=== PATIENT | female | born 1960 | race Caucasian/White ===

== ENCOUNTER 2020-12-18 17:53 | Emergency (ER) | payer OTHER, SELFPAY ==
--- NOTE | ~2020-12-18 | XR_ITS ---
EXAMINATION: XR knee LT min 4V EXAM DATE: 12/18/2020 18:20 INDICATION: Lt Knee Injury X 1 Wk Ago, Lt Anterior Knee Pain. TECHNIQUE: Left knee frontal, crosstable lateral, orthogonal oblique projections for interpretation. Comparison is made to prior examination from 09/08/2016. FINDINGS: No evidence osteochondral defect or joint body in the left knee joint. There is soft tiss ue swelling anterior to the patella, patellar tendon. There are no acute fractures identified. No alfred nt effusion. Joint spaces are maintained. IMPRESSION: Anterior soft tissue swelling. Reviewed, dictated and finalized at location A.
[2020-12-18 18:03] VITALS: BP 158/98; PULSE 91; RESP 14; TEMP 36.9; O2SAT 99
--- NOTE | 2020-12-18 20:46 | ED.LOWEXIN ---
HPI - Extremity Injury (Lower) General Chief Complaint: Extremity Injury, Lower Stated Complaint: left knee pain Time Seen by Provider: 12/18/20 20:19 Source: patient Mode of arrival: ambulatory Limitations: no limitations History of Present Illness HPI Narrative: This is a 60-year-old female that presents to the emergency department for left knee pain after an injury a week ago. Reports she tripped and fell forward and landed on the knee. Reports since she has had swelling and pain in the knee. Worse with movement and weightbearing. Relieved with rest. Denies hitting her head, loss of consciousness, other injuries, erythema, warmth, decreased range of motion or numbness. Related Data Home Medications Medication Instructions Recorded Confirmed fluoxetine mg 12/18/20 losartan 12/18/20 omeprazole 12/18/20 Allergies Allergy/AdvReac Type Severity Reaction Status Date / Time No Known Allergies Allergy Unknown Verified 12/18/20 20:20 No Known Allergies Allergy Unknown Uncoded 12/18/20 20:20 Review of Systems Review of Systems: CONSTITUTIONAL: Denies fever SKIN: Denies rash MUSCULOSKELETAL: Reports joint pain, and myalgia. All systems reviewed & are unremarkable except as noted in HPI and below PMFSH Past Medical History Medical History (Updated 12/18/20 @ 20:48 by Cristiana Madrigal PA-C) History of gastroesophageal reflux (GERD) History of hypertension Social History Social History (Updated 12/18/20 @ 20:47 by Cristiana Madrigal PA-C) Substance use: never Exam Narrative: GENERAL: Well-appearing, well-nourished, and in no acute distress. HEAD: Normocephalic, atraumatic. EYES: EOMI. EXTREMITIES: Normal range of motion. Mild soft tissue swelling anterior to the left patella. No erythema or warmth of the knee. Normal DP pulses SKIN: Warm, dry, no rash. NEURO: No focal deficits. Alert and oriented x3. PSYCH: Normal mood and affect Course Vital Signs Vital signs: Vital Signs Temperature 98.5 F 12/18/20 18:03 Pulse Rate 91 12/18/20 18:03 Respiratory Rate 14 12/18/20 18:03 Blood Pressure 158/98 H 12/18/20 18:03 Pulse Oximetry 99 12/18/20 18:03 Temperature 98.5 F 12/18/20 18:03 Pulse Rate 91 12/18/20 18:03 Respiratory Rate 14 12/18/20 18:03 Blood Pressure 158/98 H 12/18/20 18:03 Pulse Oximetry 99 12/18/20 18:03 MDM - Extremity Injury (Lower) MDM Narrative Medical decision making narrative: Patient presents to the emergency department for left knee injury sustained a week ago. She is afebrile and nontoxic-appearing. She is neurovascularly intact. Left knee x-rays without acute osseous abnormalities or evidence of joint effusion. Does show some anterior soft tissue swelling. Patient placed in an Jb wrap and given crutches. Will be given orthopedics for follow-up. She was given warnings to return to the ER Imaging Data Radiologist's impression: ITS Impressions Knee X-Ray 12/18/20 18:25 IMPRESSION: Anterior soft tissue swelling. Critical Care Time Critical Care Time Critical Care Time: No Discharge Plan Discharge Clinical Impression: Contusion of knee Qualifiers: Encounter type: initial encounter Laterality: left Qualified Code(s): S80.02XA - Contusion of left knee, initial encounter Patient Disposition: Home, Self-Care Condition: Stable Instructions: Contusion in Adults (ED) Additional Instructions: Return to the emergency department if you experience fever, redness and swelling of your knee, numbness, or any other symptoms that are concerning to you Rest. Elevate. Ice to the area. Tylenol or ibuprofen as needed for pain Follow-up with orthopedics if symptoms persist Prescriptions: No Action losartan 50 mg tablet RF: 0 omeprazole 20 mg capsule,delayed release(DR/EC) RF: 0 fluoxetine 20 mg capsule RF: 0 Follow-up/Referrals: PHYSICIAN NOT ON STAFF,NONSTAFF [Primary Ca
[2020-12-18 21:24] VITALS: BP 149/87; PULSE 88; RESP 17; O2SAT 98
== END 2020-12-18 21:00 | disposition home or self-care (01) ==
PROVIDERS: Emergency Provider Emergency Medicine
DX: S80.02XA Contusion of left knee, initial encounter (principal); K21.9 Gastro-esophageal reflux disease without esophagitis; I10 Essential (primary) hypertension; W01.0XXA Fall on same level from slipping, tripping and stumbling without subsequent striking against object, initial encounter
CPT/HCPCS: 73564; 99283

== ENCOUNTER 2021-02-11 20:23 | Emergency (ER) | payer OTHER, SELFPAY ==
[2021-02-11 20:37] VITALS: BP 172/92; PULSE 94; RESP 18; TEMP 36.6; O2SAT 98
--- NOTE | 2021-02-11 21:35 | ED.GENADULT ---
HPI - General Adult General Chief complaint: Skin/Abscess/Foreign Body Stated complaint: insect bite Time Seen by Provider: 02/11/21 21:18 History of Present Illness HPI narrative: Patient is a 60-year-old female presents the emergency department with chief complaint of redness and swelling in the left forearm. Patient states that on the dorsal aspect of her left forearm there is a tender swollen area patient states it was reddened reports there is been no drainage from it reports she may have been bitten by an insect. Patient denies diabetes denies fever denies streaking. Related Data Home Medications Medication Instructions Recorded Confirmed fluoxetine mg 12/18/20 losartan 12/18/20 omeprazole 12/18/20 Allergies Allergy/AdvReac Type Severity Reaction Status Date / Time No Known Allergies Allergy Unknown Verified 02/11/21 20:56 No Known Allergies Allergy Unknown Uncoded 12/18/20 20:20 Review of Systems Review of Systems: A 10 system review of systems was completed on the patient and is negative except for what is stated in the HPI. Nursing and ancillary documentation was reviewed. [facility] Past Medical History Medical History History of gastroesophageal reflux (GERD) History of hypertension Social History Social History Substance use: never Exam Narrative: GENERAL: Well-appearing, well-nourished, and in no acute distress. HEAD: Normocephalic, atraumatic. EYES: PERRLA and EOMI. ENT: Nares clear, no rhinorrhea or epistaxis. Mucous membranes moist. NECK: Supple. CHEST: Clear to auscultation. No respiratory distress. HEART: Regular rate and rhythm. No murmur heard. Normal peripheral pulses. ABDOMEN: Soft, nontender, nondistended, normal active bowel sounds. EXTREMITIES: Normal range of motion. No edema. There is an area of erythema approximately dime sized on the left forearm on the dorsal aspect. There is a small area of fluctuance. SKIN: Warm, dry, no rash. NEURO: No focal deficits. Alert and oriented x3. PSYCH: Normal mood and affect. Course Vital Signs Vital signs: Vital Signs Temperature 36.6 C 02/11/21 20:37 Pulse Rate 94 02/11/21 20:37 Respiratory Rate 18 11/30/21 20:37 Blood Pressure 172/92 H 02/11/21 20:37 Pulse Oximetry 98 02/11/21 20:37 Temperature 36.6 C 02/11/21 20:37 Pulse Rate 94 02/11/21 20:37 Respiratory Rate 18 02/11/21 20:37 Blood Pressure 172/92 H 02/11/21 20:37 Pulse Oximetry 98 02/11/21 20:37 Procedures Abscess I/D upper extremity: Date of Incision: 02/11/21 Time of Incision: 22:23 Side (if applicable): left Local Anesthetic: lidocaine 1% Amount of anesthesia used (mL): 2 Technique: incised with #11 blade Amount of fluid expressed (mL): 0.5 Packing used?: none I&D Results: Pus (small drop) and Blood Medical Decision Making Vital Signs Vital Signs: Vital Signs Temperature 36.6 C 02/11/21 20:37 Pulse Rate 94 02/11/21 20:37 Respiratory Rate 18 02/11/21 20:37 Blood Pressure 172/92 H 02/11/21 20:37 Pulse Oximetry 98 02/11/21 20:37 Temperature 36.6 C 02/11/21 20:37 Pulse Rate 94 02/11/21 20:37 Respiratory Rate 18 02/11/21 20:37 Blood Pressure 172/92 H 02/11/21 20:37 Pulse Oximetry 98 02/11/21 20:37 Discharge Plan Discharge Clinical Impression: Abscess of forearm, left Patient Disposition: Home, Self-Care Condition: Stable Instructions: Antibiotic Form, Abscess (ED) Prescriptions: New sulfamethoxazole-trimethoprim [Bactrim DS] 800-160 mg tablet 1 tablet PO Q12H 7 Days Qty: 14 RF: 0 No Action losartan 50 mg tablet RF: 0 omeprazole 20 mg capsule,delayed release(DR/EC) RF: 0 fluoxetine 20 mg capsule RF: 0 Follow-up/Referrals: Singh,ERNESTO Rebolledo [
[2021-02-11 22:32] VITALS: BP 157/88; PULSE 80; RESP 18; O2SAT 96
[2021-02-11] MEDS: LIDOCAINE HCL 1% LOCAL INJ 20 ML VIAL (22:32)
== END 2021-02-11 22:36 | disposition home or self-care (01) ==
PROVIDERS: Emergency Provider Emergency Medicine; PCP Physician Assistant
DX: L02.414 Cutaneous abscess of left upper limb (principal); I10 Essential (primary) hypertension; K21.9 Gastro-esophageal reflux disease without esophagitis
CPT/HCPCS: 10060; 99283; A9270

== ENCOUNTER 2021-06-21 11:11 | Emergency (ER) | payer OTHER, SELFPAY ==
--- NOTE | ~2021-06-21 | XR_ITS ---
EXAMINATION: XR knee LT min 4V EXAM DATE: 06/21/2021 12:14 INDICATION: No known recent injury provided at this time. Pain of the left knee. TECHNIQUE: Left knee lateral, frontal AP, frontal PA tunnel, sunrise projections. Comparison is made to prior examination from 12/18/2020. FINDINGS: No evidence osteochondral defect or joint body in the left knee joint. Again there is mil d swelling anterior to the patella, patellar tendon. Small suprapatellar enthesopathy. There are no a cute fractures or dislocations identified. There is no subcutaneous gas. No joint effusion. There is mild to moderate patellar lateral subluxation and tilt. Mild patellofemoral compartment primary oste oarthritis. There are no radiopaque foreign bodies. IMPRESSION: 1. Left knee exam without acute osseous findings. 2. Mild to moderate lateral patellar tilt and subluxation. 3. Mild patellofemoral osteoarthritis. 4. Mild anterior soft tissue swelling. Reviewed, dictated and finalized at location A.
[2021-06-21 11:31] VITALS: BP 161/89; PULSE 89; RESP 16; TEMP 36.6; O2SAT 95
--- NOTE | 2021-06-21 12:00 | ED.LOWEXIN ---
HPI - Extremity Injury (Lower) General Chief Complaint: Extremity Injury, Lower <Cecy Lucio PA-C - Last Filed: 06/21/21 17:02> Stated Complaint: left knee pain <Cecy Lucio PA-C - Last Filed: 06/21/21 17:02> Time Seen by Provider: 06/21/21 11:18 <Cecy Lucio PA-C - Last Filed: 06/21/21 17:02> Source: patient <JO ANN Hines Last Filed: 06/21/21 17:02> Mode of arrival: ambulatory <JO ANN Hines Last Filed: 06/21/21 17:02> Limitations: no limitations <JO ANN Hines Last Filed: 06/21/21 17:02> History of Present Illness HPI Narrative: Patient is a 60-year-old female who presents the ED with report of left knee pain. Patient reports she fell 3 months ago and landed directly down on her left knee. Per patient's records, she was seen in the ED for left knee pain in December 2020. Had negative x-rays at that time and was given orthopedic follow-up. Patient has not followed up with Ortho. She states she has seen her primary care doctor for this and had again repeat x-rays which were negative. Patient reports the pain has become more bothersome in the past 2 weeks. No new fall or injury. She is able to ambulate and only reports having occasional pain with this. She has been taking ibuprofen at home without much relief. No fever, chills, swelling, redness, warmth. No numbness/tingling, weakness. <JO ANN Hines Last Filed: 06/21/21 17:02> Related Data Home Medications: Home Medications Medication Instructions Recorded Confirmed atorvastatin 40 mg PO DAILY 06/21/21 cetirizine [Zyrtec] 10 mg PO DAILY 06/21/21 fluoxetine [Prozac] 20 mg PO DAILY 06/21/21 gabapentin 600 mg PO TID 06/21/21 losartan 50 mg PO DAILY 06/21/21 omeprazole 40 mg PO DAILY 06/21/21 <JO ANN Hines Last Filed: 06/21/21 17:02> Allergies/Adverse Reactions: Allergies Allergy/AdvReac Type Severity Reaction Status Date / Time No Known Allergies Allergy Unknown Verified 06/21/21 11:34 <Cecy Lucio PA-C - Last Filed: 06/21/21 17:02> Review of Systems Review of Systems: CONSTITUTIONAL: Denies fever, chills. SKIN: Denies swelling, redness, warmth to L knee. MUSCULOSKELETAL: Reports L knee pain. Denies back pain, difficulty ambulating. NEUROLOGIC: Denies numbness, or weakness. <Cecy Lucio PA-C - Last Filed: 06/21/21 17:02> All systems reviewed & are unremarkable except as noted in HPI and below <Cecy Lucio PA-C - Last Filed: 06/21/21 17:02> PMFSH Past Medical History Medical History: Medical History (Updated 06/21/21 @ 12:58 by Cecy Lucio PA-C) History of gastroesophageal reflux (GERD) History of hypertension Hypercholesterolemia <Cecy Lucio PA-C - Last Filed: 06/21/21 17:02> Surgical History Surgical History: Surgical History (Updated 06/21/21 @ 12:03 by Cecy Lucio PA-C) History of hysterectomy <Cecy Lucio PA-C - Last Filed: 06/21/21 17:02> Social History Social History: Social History (Updated 06/21/21 @ 12:03 by Cecy Lucio PA-C) Smoking status: Never smoker Substance use: never <Cecy Lucio PA-C - Last Filed: 06/21/21 17:02> Exam Narrative: GENERAL: Well appearing, well-nourished, non-toxic, in no acute distress. HEAD: Normocephalic, atraumatic. NECK: Supple. No adenopathy, no masses. RESPIRATORY: Airway patent, respirations nonlabored. Clear to auscultation bilaterally, no rales, rhonchi, wheezing. CARDIOVASCULAR: Regular rate and rhythm without murmurs, rubs, or gallops. Peripheral pulses 2+ and equal bilaterally. MUSCULOSKELETAL: Moves all extremities. Strength/ROM intact without gross deformities. No warmth, erythema. Minimal tenderness along L knee lateral joint line. Mild TTP of L anterior patella, small circular area of swelling. Mild discomfort with varus stress. No calf tenderness. No TTP of L hip/L ankle. SKIN: Warm, dry, normal color. No rashes. NEURO: A
== END 2021-06-21 13:07 | disposition home or self-care (01) ==
PROVIDERS: Emergency Provider Emergency Medicine; PCP Physician Assistant
DX: M25.562 Pain in left knee (principal); K21.9 Gastro-esophageal reflux disease without esophagitis; I10 Essential (primary) hypertension; E78.00 Pure hypercholesterolemia, unspecified; M17.12 Unilateral primary osteoarthritis, left knee
CPT/HCPCS: 73564; 99283